=== PATIENT | female | born 1935 | race Caucasian/White ===

== ENCOUNTER 2017-11-07 14:13 | Emergency (ER) | payer OTHER ==
[~2017-11-07] VITALS: Ht 165.1 cm; Wt 74.8 kg
[2017-11-07] MEDS ORDERED: LASIX 40 MG TAB40 M2 PO (14:37)
[2017-11-07] MEDS ORDERED: ATENOLOL 100MG100 MG PO (14:38)
[2017-11-07] MEDS ORDERED: POTASSIUM20 PO (14:38)
[2017-11-07] MEDS ORDERED: LOTREL 10-20 M1 EACH PO (14:38)
[2017-11-07] MEDS ORDERED: PENTOXIFYLLINE400 MG PO (14:39)
[2017-11-07] MEDS ORDERED: MECLIZINE HCL12.5 MG PO (16:07)
[2017-11-07 16:25] VITALS: BP 176/67
== END 2017-11-07 16:49 | disposition home or self-care (01) ==
LOC: M.ERS 14:13
DX: H61.22 Impacted cerumen, left ear (principal); R42 Dizziness and giddiness; I10 Essential (primary) hypertension; Z90.721 Acquired absence of ovaries, unilateral